=== PATIENT | female | born 1965 | race Caucasian/White ===

== ENCOUNTER → 2018-07-20 07:42 | Outpatient (CLI) | payer BC, SELFPAY ==
--- NOTE | 2018-07-20 07:45 | CT_ITS ---
CT chest wo con HISTORY: Hypertension, palpitations, fatigue ITS.REASON: s ORDERING PHYSICIAN: Alvarado Banegas MD PATIENT AGE: 52 years COMPARISON: None Technique: Axial images obtained. Sagittal, and coronal reformatted images are also generated and reviewed. All CT scans at the facility use one or more dose reduction, viz: automated exposure control, ma/kV adjustment per patient size (including targeted exams where dose is matched to indication, i.e. head), or iterative reconstruction technique. FINDINGS No mediastinal or hilar mass or adenopathy. No coronary artery calcifications. Normal heart size without evidence of pericardial effusion. The lungs are clear. No suspicious nodule infiltrate or effusion. No central obstructing lesion. There are few small lymph nodes in the axilla which are nonspecific No acute bony anomalies. Upper abdominal images are unremarkable. IMPRESSION: Negative CT chest without contrast
--- NOTE | 2018-07-20 07:45 | CA_ITS ---
PROCEDURE: INDICATIONS FOR THE TEST: Chest pain COPD Heart Murmur+ Tobacco Smoking+ Palpitations+ Fatigue+ Syncope Edema Hypertension+Diabetes Mellitus Rheumatic Fever SOB SOLIZ Obesity Hyperlipidemia Family History HD+ Additional History PATIENT INFORMATION HEIGHT:66 WEIGHT:166 GENDER: Female B/P:165/90 2-D/M-MODE INTERPRETATION: 2-D MEASUREMENTS OBSERVED VALUES IN CMS Right Ventricular Dimension (RVDd) 1.0 Interventricular Septum (Thickness)(IVsd) 0.8 Left Ventricular Internal Dimensions(LVIDd) 5.7 Left Ventricular Posterior Wall (Thickness)(LVPWd) 0.9 Aortic Root 2.7 Aortic Cusp Separation 2.0 Left Atrial Dimensions (LAD) 4.4 2D 1. Left atrium is mildly enlarged, left ventricle is normal size, there is no concentric left ventricular hypertrophy, visually estimated ejection fraction 55% with no regional wall motion abnormality. 2. The right atrium and right ventricle are normal size and contractility. 3. The aortic valve is minimally thickened and fibrosed. 4. The mitral and tricuspid valve is normal. 5. The pulmonic valve is poorly visualized. 6. No significant pericardial effusion noted. DOPPLER INTERROGATION: Doppler interrogation of the aortic, mitral and tricuspid valvular presence of mild mitral and tricuspid regurgitation, tricuspid regurgitation jet velocity is inadequate for calculation of the right ventricular systolic pressure, grade 1 diastolic dysfunction seen without tissue Doppler evidence of raised left atrial pressure, inferior vena cava is normal size with normal inspiratory collapse. CONCLUSION: 1. Mildly enlarged left atrium, normal left ventricular size, visually estimated ejection fraction 55% with no regional wall motion abnormality, grade 1 diastolic dysfunction seen without tissue Doppler evidence of raised left atrial pressure. 2. Mild mitral and tricuspid regurgitation. 3. No significant pericardial effusion noted.
== END ==
PROVIDERS: PCP Family Medicine; Visit Provider Internal Medicine Cardiovascular Disease
DX: R00.2 Palpitations (principal); I10 Essential (primary) hypertension; F17.200 Nicotine dependence, unspecified, uncomplicated; R53.83 Other fatigue; Z82.49 Family history of ischemic heart disease and other diseases of the circulatory system
CPT/HCPCS: 71250; 93017; 93306

== ENCOUNTER → 2019-01-06 09:03 | Outpatient (CLI) | payer BC, SELFPAY ==
[2019-01-06 09:46] LABS: Anion Gap 12.4 mEq/L (5-15); Blood Urea Nitrogen 11 mg/dL (7-18); Calcium 9.3 mg/dL (8.5-10.1); Carbon Dioxide 29 mmol/L (21.0-32.0); Chloride 98 mmol/L (98-107); Creatinine,Serum 0.91 mg/dL (0.55-1.02); Estimated Glomerular Filt Rate 65 ml/min (>60); GFR (African American) 78 ML/MIN (>60); Glucose 130 mg/dL (74-106); Potassium 4.4 mmoL/L (3.5-5.1); Sodium 135 mmol/L (136-145)
[2019-01-06 10:30] LABS: Alanine Aminotransferase 29 U/L (12-78); Albumin Level 3.8 gm/dL (3.4-5.0); Alkaline Phosphatase 72 U/L (46-116); Aspartate Amino Transferase 25 U/L (15-37); Bilirubin,Direct 0.1 mg/dL (0.0-0.2); Bilirubin,Indirect 0.2 mg/dL (0.0-0.9); Bilirubin,Total 0.3 mg/dL (0.2-1.0); Chol/HDL Ratio 2.6 (1-3.5); Cholesterol 150 mg/dL (140-200); HDL Cholesterol 58 mg/dL (29-89); LDL Cholesterol 82 mg/dL (0-130); Total Protein,Serum 7.4 gm/dL (6.4-8.2); Triglycerides 50 mg/dL (30-200); VLDL Cholesterol 10 mg/dL (0-40)
== END ==
PROVIDERS: Visit Provider Internal Medicine Cardiovascular Disease
DX: R07.9 Chest pain, unspecified (principal); I10 Essential (primary) hypertension; R00.2 Palpitations; R06.02 Shortness of breath; R53.83 Other fatigue; Z82.49 Family history of ischemic heart disease and other diseases of the circulatory system; F41.9 Anxiety disorder, unspecified; F17.200 Nicotine dependence, unspecified, uncomplicated
CPT/HCPCS: 36415; 80048; 80061; 80076

== ENCOUNTER → 2019-08-05 08:24 | Outpatient (CLI) | payer BC, SELFPAY ==
--- NOTE | 2019-08-05 08:24 | CA_ITS ---
APPROVED REPORT Ed Tech: Oly Garza RVT Study Quality: Excellent Indications: malignant htn Risk Factors Hypertension Smoking Renal Artery Doppler Origin (R) 106.5/ cm/sec Proximal (R) 143.1/ cm/sec Mid (R) 97.6/ cm/sec Distal (R) 87.7/ cm/sec Renal Aorta Ratio (R) 1.39 Segmental A. (R) 75.2/19.5 cm/sec RI: 0.74 Segmental A. Sup (R) 60.4/19.8 cm/sec Segmental A. Mid (R) 75.2/19.5 cm/sec Segmental A. Inf (R) 48.7/13.9 cm/sec Origin (L) 139.7/ cm/sec Proximal (L) 136.4/ cm/sec Mid (L) 87.8/ cm/sec Distal (L) 127.4/ cm/sec Renal Aorta Ratio (L) 1.35 Segmental A. (L) 93.4/29.9 cm/sec RI: 0.67 Segmental A. Sup (L) 45.6/22.0 cm/sec Segmental A. Mid (L) 64.5/20.5 cm/sec Segmental A. Inf (L) 83.4/29.9 cm/sec Renal Measurements Kidney Size (R) 11.1x7.3 cm Cortical Thickness (R) 1.5 cm Kidney Size (L) 11.1x7.7 cm Cortical Thickness (L) 1.7 cm Conclusion Study suggests no evidence of renal artery stenosis in the bilateral kidneys. Electronically signed by : Zachary Hall MD 08/05/2019 16:43:17
== END ==
PROVIDERS: PCP Family Medicine; Visit Provider Internal Medicine Cardiovascular Disease
DX: I10 Essential (primary) hypertension (principal)
CPT/HCPCS: 93976

== ENCOUNTER → 2021-06-19 13:39 | Outpatient (CLI) | payer BC, SELFPAY ==
[2021-06-19 14:57] LABS: Basophils # 0.2 K/mm3 (0-0.2); Basophils % 1.4 % (0.1-2.0); Eosinophils # 0.1 K/mm3 (0.0-0.4); Eosinophils % 1.2 % (0.1-12.0); Hematocrit 45.8 % (37.0-47.0); Hemoglobin 15.2 g/dL (12.2-16.2); Lymphocytes # 2.4 K/mm3 (0.7-4.5); Lymphocytes % 22.2 % (10-50); Mean Corpuscular HGB Conc 33.3 g/dL (31.8-35.4); Mean Corpuscular Hemoglobin 33.7 pg (27.0-31.2); Mean Corpuscular Volume 101.4 fl (81-99); Mean Platelet Volume 8.7 fl (7.4-10.4); Monocytes # 0.5 K/mm3 (0.1-1.0); Monocytes % 5.1 % (1.7-9.3); Neutrophils # 7.5 K/mm3 (1.8-7.8); Neutrophils % 70.2 % (37.0-80.0); Platelet Count 284 K/mm3 (142-424); Red Blood Count 4.52 M/mm3 (4.20-5.40); Red Cell Distribution Width 13.5 % (11.5-17.5); White Blood Count 10.7 K/mm3 (4.8-10.8)
[2021-06-19 15:29] LABS: Alanine Aminotransferase 39 U/L (12-78); Albumin Level 4.5 g/dl (3.5-5.0); Alkaline Phosphatase 68 U/L (38-126); Aspartate Amino Transferase 40 U/L (14-36); Bilirubin,Direct 0.1 mg/dl (0.0-0.4); Bilirubin,Indirect 0.4 mg/dL (0.0-0.9); Bilirubin,Total 0.5 mg/dl (0.2-1.3); Bilirubin,Unconjugated 0.4 mg/dL (0.0-1.1); Chol/HDL Ratio 3.1 (1-3.5); Cholesterol 185 mg/dl (140-200); HDL Cholesterol 59 mg/dl (40-60); Total Protein,Serum 7.1 g/dl (6.3-8.2); Triglycerides 76 mg/dl (30-150); VLDL Cholesterol 15 mg/dL (0-40)
[2021-06-19 15:40] LABS: Alanine Aminotransferase 40 U/L (12-78); Albumin Level 4.5 g/dl (3.5-5.0); Albumin/Globulin Ratio 1.9 (1.1-1.8); Alkaline Phosphatase 69 U/L (38-126); Anion Gap 10.9 mEq/L (5-15); Aspartate Amino Transferase 39 U/L (14-36); Bilirubin,Total 0.5 mg/dl (0.2-1.3); Blood Urea Nitrogen 12 mg/dl (7-17); Calcium 9.7 mg/dl (8.4-10.2); Carbon Dioxide 28 mmol/L (22.0-30.0); Chloride 98 mmol/L (98-107); Direct LDL Cholesterol 97.48 mg/dL (100-129); Estimated Glomerular Filt Rate 104 ml/min (>60); GFR (African American) 126 ML/MIN (>60); Globulin 2.4 g/dL (1.3-3.2); Glucose 99 mg/dl (74-100); Potassium 3.9 mmoL/L (3.5-5.1); Sodium 133 mmol/L (136-145); Total Protein,Serum 6.9 g/dl (6.3-8.2); Uric Acid 3.5 mg/dl (2.5-6.2)
[2021-06-19 15:58] LABS: Thyroid Stimulating Hormone 2.04 uIU/mL (0.465-4.68)
== END ==
PROVIDERS: PCP Internal Medicine Cardiovascular Disease; Visit Provider Nurse Practitioner Family
DX: I10 Essential (primary) hypertension (principal); M10.9 Gout, unspecified; M15.9 Polyosteoarthritis, unspecified; E55.9 Vitamin D deficiency, unspecified
CPT/HCPCS: 36415; 80053; 80061; 80076; 84439; 84443; 84550; 85025

== ENCOUNTER → 2022-05-19 12:11 | Outpatient (CLI) | payer BC, SELFPAY ==
[2022-05-19 12:33] LABS: Basophils # 0.1 K/mm3 (0-0.2); Basophils % 1.3 % (0.1-2.0); Eosinophils # 0.2 K/mm3 (0.0-0.4); Eosinophils % 2.4 % (0.1-12.0); Hematocrit 45.4 % (37.0-47.0); Hemoglobin 14.6 g/dL (12.2-16.2); Lymphocytes # 2.6 K/mm3 (0.7-4.5); Lymphocytes % 28.5 % (10-50); Mean Corpuscular HGB Conc 32.1 g/dL (31.8-35.4); Mean Corpuscular Hemoglobin 30.8 pg (27.0-31.2); Mean Corpuscular Volume 95.7 fl (81-99); Mean Platelet Volume 8.2 fl (7.4-10.4); Monocytes # 0.5 K/mm3 (0.1-1.0); Monocytes % 4.8 % (1.7-9.3); Neutrophils # 5.8 K/mm3 (1.8-7.8); Neutrophils % 62.9 % (37.0-80.0); Platelet Count 377 K/mm3 (142-424); Red Blood Count 4.75 M/mm3 (4.20-5.40); Red Cell Distribution Width 13.3 % (11.5-17.5); White Blood Count 9.2 K/mm3 (4.8-10.8)
[2022-05-19 12:46] LABS: Chloride 97 mmol/L (98-107); Sodium 136 mmol/L (136-145)
[2022-05-19 12:47] LABS: Potassium 4.1 mmoL/L (3.5-5.1)
[2022-05-19 12:49] LABS: Alanine Aminotransferase 31 U/L (12-78); Albumin Level 4.7 g/dl (3.5-5.0); Alkaline Phosphatase 66 U/L (38-126); Anion Gap 13.1 mEq/L (5-15); Aspartate Amino Transferase 32 U/L (14-36); Bilirubin,Direct 0.2 mg/dl (0.0-0.4); Bilirubin,Indirect 0.2 mg/dL (0.0-0.9); Bilirubin,Total 0.4 mg/dl (0.2-1.3); Bilirubin,Unconjugated 0.2 mg/dL (0.0-1.1); Blood Urea Nitrogen 10 mg/dl (7-17); Calcium 9.5 mg/dl (8.4-10.2); Carbon Dioxide 30 mmol/L (22.0-30.0); Cholesterol 198 mg/dl (140-200); Estimated Glomerular Filt Rate 103 ml/min (>60); GFR (African American) 125 ML/MIN (>60); Glucose 111 mg/dl (74-100); Total Protein,Serum 7.7 g/dl (6.3-8.2); Triglycerides 137 mg/dl (30-150); VLDL Cholesterol 27 mg/dL (0-40)
[2022-05-19 12:50] LABS: Chol/HDL Ratio 3.5 (1-3.5); HDL Cholesterol 56 mg/dl (40-60); Magnesium 1.6 mg/dl (1.6-2.3)
[2022-05-19 13:01] LABS: Direct LDL Cholesterol 119.51 mg/dL (100-129)
[2022-05-19 13:07] LABS: Free T4 (Free Thyroxine) 1.23 ng/dl (0.78-2.19)
[2022-05-19 13:20] LABS: Thyroid Stimulating Hormone 1.32 uIU/mL (0.465-4.68)
== END ==
PROVIDERS: PCP Nurse Practitioner Family; Visit Provider Internal Medicine Cardiovascular Disease
DX: I10 Essential (primary) hypertension (principal)
CPT/HCPCS: 36415; 80048; 80061; 80076; 83735; 84439; 84443; 85025

== ENCOUNTER → 2022-10-03 15:32 | Outpatient (CLI) | payer BC, SELFPAY ==
[2022-10-03 15:53] LABS: Basophils % 0.3 % (0.1-2.0); Eosinophils # 0.1 K/mm3 (0.0-0.4); Eosinophils % 1.2 % (0.1-12.0); Hematocrit 41.1 % (37.0-47.0); Hemoglobin 13.7 g/dL (12.2-16.2); Lymphocytes # 2.9 K/mm3 (0.7-4.5); Lymphocytes % 24.9 % (10-50); Mean Corpuscular HGB Conc 33.4 g/dL (31.8-35.4); Mean Corpuscular Hemoglobin 31.8 pg (27.0-31.2); Mean Corpuscular Volume 95.4 fl (81-99); Mean Platelet Volume 8.2 fl (7.4-10.4); Monocytes # 0.6 K/mm3 (0.1-1.0); Monocytes % 4.8 % (1.7-9.3); Neutrophils % 68.8 % (37.0-80.0); Platelet Count 346 K/mm3 (142-424); Red Blood Count 4.31 M/mm3 (4.20-5.40); Red Cell Distribution Width 12.9 % (11.5-17.5); White Blood Count 11.7 K/mm3 (4.8-10.8)
[2022-10-03 16:54] LABS: Alanine Aminotransferase 35 U/L (12-78); Albumin Level 4.6 g/dl (3.5-5.0); Albumin/Globulin Ratio 1.6 (1.1-1.8); Alkaline Phosphatase 75 U/L (38-126); Anion Gap 15.3 mEq/L (5-15); Aspartate Amino Transferase 34 U/L (14-36); Bilirubin,Total 0.4 mg/dl (0.2-1.3); Blood Urea Nitrogen 14 mg/dl (7-17); Calcium 9.9 mg/dl (8.4-10.2); Carbon Dioxide 24 mmol/L (22.0-30.0); Chloride 99 mmol/L (98-107); Estimated Glomerular Filt Rate 74 ml/min (>60); GFR (African American) 89 ML/MIN (>60); Globulin 2.9 g/dL (1.3-3.2); Glucose 101 mg/dl (74-100); Potassium 4.3 mmoL/L (3.5-5.1); Sodium 134 mmol/L (136-145); Total Protein,Serum 7.5 g/dl (6.3-8.2)
== END ==
PROVIDERS: PCP Nurse Practitioner Family; Visit Provider Otolaryngology
DX: Z01.812 Encounter for preprocedural laboratory examination (principal)
CPT/HCPCS: 36415; 80053; 85025

== ENCOUNTER → 2023-01-30 13:23 | Outpatient (CLI) | payer BC, SELFPAY ==
--- NOTE | 2023-01-30 13:23 | CA_ITS ---
APPROVED REPORT EXAM: Comprehensive 2D, Doppler, and color-flow Echocardiogram Slip Cover Estimator: PAUL Crowell, RVS Ht: 5 ft 6 in Wt: 195lbs BSA: 1.98 BP: 187/101 mmHg Indications: HTN, MR, Murmur, Palpitations, Smoker 2D Dimensions Left Atrium 3.63 cm LA Volume 68.80 mL LA Volume Index 33.90 mL/m2 (M/F) 16-34 M-Mode Dimensions RVDd 2.66 cm (0.9-2.6) LA Diam 3.66 cm (1.9-4.0) LVDd 5.16 cm (3.5-5.7) LVDs 3.72 cm (3.5-5.7) IVSd 1.25 cm (0.6-1.1) PWd 0.99 cm (0.6-1.1) EF (Teich) 53.70% EPSs 0.38 cm FS 27.90% EDV (Teich) 127.20 mL TAPSE 2.86 (<1.7) ESV (Teich) 58.90 mL LV Diastology E Decel Time 223 (160-240 msec) E/A Ratio 1.54 MED A' 7.60 cm/s LAT A' 6.80 cm/s Aortic Valve LONG Index 1.04 cm2/m2 AoV Peak Ankit. 155.0 (50-130 cm/s) AO Peak GR. 9.60 mmHg AO Mean GR. 4.90 (<5 mmHg) AO VTI 35.2 (18-25 cm) LONG (VTI) 2.12 (2.5-4.5 cm2) Mitral Valve MV A Velocity 51.0 (40-130 cm/s) E/A Ratio 1.54 Left Ventricle The left ventricle is normal size. The left ventricular systolic function is normal. The left ventricular ejection fraction is within the normal range. There is normal left ventricular wall thickness. There is normal LV segmental wall motion. The left ventricular diastolic function is normal. LVEF is 60%. Right Ventricle The right ventricle is normal size. The right ventricular systolic function is normal. Atria The left atrium size is mildly dilated. The right atrium size is normal. There is no Doppler evidence of interatrial shunt. Aortic Valve The aortic valve opens well. There is no aortic valvular stenosis. No aortic regurgitation is present. Mitral Valve The mitral valve is normal in structure. No evidence of mitral valve stenosis. Trace mitral regurgitation. Tricuspid Valve The tricuspid valve leaflets are thin and pliable. Trace tricuspid regurgitation. There is insufficient TR jet to estimate RVSP. Pulmonic Valve The pulmonary valve is normal in structure. Trace pulmonic regurgitation. Great Vessels The aortic root is normal in size. The ascending aorta is normal in size. IVC is normal in size and collapses >50% with inspiration. Pericardium There is no pericardial effusion. Other Information Study Quality: Adequate Conclusion Normal biventricular systolic function. No significant valvular stenosis or regurgitation. Electronically signed by : Patricia Lopez MD 02/05/2023 23:19:02
== END ==
PROVIDERS: PCP Nurse Practitioner Family; Visit Provider Internal Medicine
DX: I34.0 Nonrheumatic mitral (valve) insufficiency (principal); I07.1 Rheumatic tricuspid insufficiency; I10 Essential (primary) hypertension; F17.200 Nicotine dependence, unspecified, uncomplicated
CPT/HCPCS: 93306

== ENCOUNTER 2023-09-30 13:44 | Outpatient (CLI) | payer BC, SELFPAY ==
[2023-09-30 14:00] LABS: Basophils # 0.1 K/mm3 (0-0.2); Basophils % 0.8 % (0.1-2.0); Eosinophils # 0.2 K/mm3 (0.0-0.4); Eosinophils % 2.1 % (0.1-12.0); Lymphocytes # 3.2 K/mm3 (0.7-4.5); Lymphocytes % 32.3 % (10-50); Mean Corpuscular HGB Conc 32.6 g/dL (31.8-35.4); Mean Corpuscular Hemoglobin 32.6 pg (27.0-31.2); Mean Corpuscular Volume 99.9 fl (81-99); Mean Platelet Volume 8.8 fl (7.4-10.4); Monocytes # 0.5 K/mm3 (0.1-1.0); Monocytes % 4.7 % (1.7-9.3); Neutrophils # 5.9 K/mm3 (1.8-7.8); Platelet Count 382 K/mm3 (142-424); Red Cell Distribution Width 13.4 % (11.5-17.5); White Blood Count 9.8 K/mm3 (4.8-10.8)
[2023-09-30 14:34] LABS: Blood Urea Nitrogen 14 mg/dl (7-17); Calcium 9.7 mg/dl (8.4-10.2); Carbon Dioxide 24 mmol/L (22.0-30.0); Chloride 102 mmol/L (98-107); Estimated Glomerular Filt Rate 74 ml/min (>60); GFR (African American) 89 ML/MIN (>60); Glucose 107 mg/dl (74-100); Potassium 3.8 mmoL/L (3.5-5.1)
[2023-09-30 14:46] LABS: Anion Gap 12.8 mEq/L (5-15); Sodium 135 mmol/L (136-145)
== END 2023-09-30 23:59 | disposition home or self-care (01) ==
LOC: LAB 13:45
PROVIDERS: PCP Nurse Practitioner Family; Visit Provider Colon & Rectal Surgery
DX: K60.3 Anal fistula (principal)
CPT/HCPCS: 36415; 80048; 85025

== ENCOUNTER 2024-04-02 15:10 | Emergency (ER) | payer BC, SELFPAY ==
[2024-04-02 15:25] VITALS: BP 102/76; PULSE 79; RESP 18; TEMP 36.6; O2SAT 94; BMI 34.1
--- NOTE | 2024-04-02 15:33 | ED_ITS ---
Discharge Plan Disposition Patient Disposition: Home, Self-Care Condition: Good Prescriptions Prescriptions: New doxycycline hyclate 100 mg capsule 100 mg PO BID Qty: 20 0RF benzonatate 100 mg capsule 100 mg PO TID PRN (Reason: cough) Qty: 30 0RF methylprednisolone [Medrol (Zach)] 4 mg tablets,dose pack See Rx Instructions .Route .COMPLEX 6 Days Qty: 21 0RF Rx Instructions: taper pack; guaifenesin [Mucinex] 600 mg tablet extended release 12hr 1,200 mg PO BID PRN (Reason: cough/congestion) Qty: 20 0RF albuterol sulfate 90 mcg/actuation HFA aerosol inhaler 2 puff inhalation Q4-6H PRN (Reason: shortness of breath or wheezing) Qty: 8.5 0RF No Action amlodipine [Norvasc] 5 mg tablet 5 mg PO DAILY Qty: 30 11RF bisoprolol fumarate 10 mg tablet 10 mg PO BID Qty: 60 11RF budesonide 1 mg/2 mL suspension for nebulization 1 mg inhalation DAILY Patient Comments: Empty contents of one ampule into Netiflo, add distilled water and irrigate 1 to 2 times losartan-hydrochlorothiazide 100-25 mg tablet 1 tab PO DAILY Qty: 30 11RF clonidine HCl 0.1 mg tablet 0.1 mg PO TID 30 Days Qty: 90 3RF spironolactone 25 mg tablet 25 mg PO DAILY Qty: 30 4RF Referrals Follow up/Referrals: Shalonda Garrett APRN [Primary Care Provider] - See instructions Activity Restrictions/Add. Instructions Additional Instructions/Restrictions: * Start antibiotic today. Be sure to complete entire prescription even if feeling better * Monitor temp. Tylenol every 4 hours as needed and / or ibuprofen every 6 hours as needed ( As long as your primary care physician has told you that it ok to take both. For fever/aches/pains ER if no less than 101 despite Tylenol or Motrin * Humidifier/vaporizer or hot steamy shower * Inhaler every 4-6 hours as needed like we discussed. If unsure how to use it, ask pharmacist to demonstrate how. Should help open airways and improve cough, wheezing, and shortness of breath * Mucinex during the day for your cough and cough suppressant only at night. Be sure to drink lots of water. *Tessalon Perles will not cause drowsiness but use at bedtime to help stop cough so that you may get some rest. *Start steroid today. Helps with inflammation therefore, cough and wheezing. Follow directions on the package. Reviewed side effects. Patient reports taking them before. Follow up IMMEDIATELY for new or worsening of symptoms OR no noticeable improvement over the next 48-72 hours. 911 immediately for any life threatening symptoms such as chest pain or difficulty breathing Clinical Impressions Clinical Impression: Bronchitis Sinusitis Qualifiers: Sinusitis location: unspecified location Chronicity: unspecified Qualified Code(s): J32.9 - Chronic sinusitis, unspecified Instructions Patient Instructions: DI for Sinusitis, Acute Bronchitis, DI for Acute Bronchitis Print Language Print Language: Mohawk Discharge ED Provider: Breonna Haider [facility] General Stated complaint: SOA,cough,fever Mode of Arrival: Ambulatory Source of Information: Patient Limitations: No Limitations Time Seen by Provider: 04/02/24 15:34 Description of Symptoms (Recalled from Triage Doc. by RN): PATIENT C/O SOA, COUGH, FEVER, AND FATIGUE SINCE Thursday HEENT Symptoms (Recalled from RN notes): No Resp Symptoms (Recalled from RN notes): Yes Skin Symptoms (Recalled from RN notes): No MS Symptoms (Recalled from RN notes): No Functional Status (Recalled from RN notes): WNL History of Present Illness Provider Complaint: Patient states that she has continued to feel worse since with sinus congestion and pressure, cough feeling SOA at times after coughing episode, had low grade fever, some chills and over all not feeling well States today she was still not feeling well so she came in to get checked Related Data Home Medications ?Medication ?Instructions ?Recorded ?Confirmed budesonide 1 mg/2 mL suspension 1 mg inhalation DAILY 01/13/24 04/02/24 for nebulization Previous Rx's ?Medication ?Instructions ?Recorded amlodipine 5 mg tablet (Norvasc) 5 mg PO DAILY #30 tabs 06/10/23 bisoprolol fumarate 10 mg tablet 10 mg PO BID #60 tabs 06/10/23 losartan 100 1 tab PO DAILY #30 tabs 10/19/23 mg-hydrochlorothiazide 25 mg tablet clonidine HCl 0.1 mg tablet 0.1 mg PO TID 30 days #90 tabs 12/13/24 spironolactone 25 mg tablet 25 mg PO DAILY #30 tabs 02/12/24 albuterol sulfate 90 mcg/actuation 2 puff inhalation Q4-6H PRN 04/02/24 aerosol inhaler shortness of breath or wheezing #8.5 grams benzonatate 100 mg capsule 100 mg PO TID PRN cough #30 caps 04/02/24 doxycycline hyclate 100 mg capsule 100 mg PO BID #20 caps 04/02/24 guaifenesin 600 mg tablet, 1,200 mg (2 x 600 mg) PO BID PRN 04/02/24 extended release 12 hr (Mucinex) cough/congestion #20 tabs methylprednisolone 4 mg tablets in See Rx Instructions .Route 04/02/24 a dose pack (Medrol (Zach)) .COMPLEX 6 days #21 tabs Allergies Allergy/AdvReac Type Severity Reaction Status Date / Time Penicillins (PENICILLINS) Allergy Unknown Verified 01/13/24 14:19 Worker's Comp Is this a Worker's Comp case?: No [facility] Disclaimer: The information contained in this section may have been updated after the patient was seen, as this information can be updated by other users. Medical History Mild tricuspid valve regurgitation Mild mitral valve regurgitation Anxiety Chest pain Fatigue Family history of hypertension Smoker HTN (hypertension) Surgical History H/O sinus surgery Social History Smoking Status: Former smoker alcohol intake: current alcohol intake frequency: holidays/special occasions only substance use type: denies use current occupational status: employed Travel in the last 8 weeks: Inside the [place] Have you lived/traveled outside US in past 30 days?: No Contact w/someone who lives/traveled outside US past 30 days?: No Exposure to someone with infectious disease in past 14 days?: No Do you have a fever (greater than 100.4 F or 38 C)?: Yes Have you tested positive for COVID-19: No Exposed to someone with COVID-19 in past 14 days?: No Do you have a sore throat?: No Do you have a cough?: Yes Do you have any weakness?: Yes Do you have any diarrhea?: No Are you experiencing any unusual bleeding?: No Do you have any muscle aches/pain?: No Do you have any abdominal pain?: No Are you experiencing loss of taste or smell?: No ROS Obtained: Yes All systems reviewed & no additional complaints except as documented and Yes Systems reviewed as appropriate & no additional complaints except as documented Constitutional Constitutional: Reports system reviewed and no additional complaints, except as documented, Reports as per HPI, Reports body ache, Reports fever(s) and Reports headache(s) ENT Ears, Nose, Mouth, and Throat: Reports system reviewed and no additional complaints, except as documented, Reports as per HPI, Reports headache(s), Reports nasal congestion and Reports sinus pressure Cardiovascular Cardiovascular: Reports system reviewed and no additional complaints, except as documented and Reports as per HPI Respiratory Respiratory: Reports system reviewed and no additional complaints, except as documented, Reports as per HPI, Reports shortness of breath (at times after coughing episode), Reports chest congestion and Reports cough Gastrointestinal Gastrointestingal: Reports system reviewed and no additional complaints, except as documented and as per HPI Genitourinary Female Genitourinary: Reports system reviewed and no additional complaints, except as documented and Reports as per HPI Neurologic Neurologic: Reports headache(s) Physical Exam General General appearance: alert and in no apparent distress ENT ENT exam: Present mucous membranes moist Expanded ENT Exam Nose exam: Present sinus tenderness Throat exam: Present other (PND noted) Respiratory Respiratory exam: Present normal lung sounds bilaterally; Absent respiratory distress or wheezes Cardiovascular Cardiovascular exam: Present regular rate, normal rhythm and normal heart sounds Abdominal Exam Abdominal exam: Present soft and normal bowel sounds; Absent distention or tenderness Neurological Exam Neurological exam: Present alert, oriented X3 and normal gait Medical Decision Making Medical Records Screening: Per USPSTF and CDC recommendations, given the prevalence of disease in our region, it is our hospital?s policy to screen for HIV and viral Hepatitis for all patients aged 18 and over and those with ongoing risk factors. [place] Inquiry Pt receiving controlled substance: No [place] was queried for this patient: No Vital Signs: 04/02/24 15:25 Temperature 97.9 F Temperature Source Oral Pulse Rate [Left Brachial] 79 Respiratory Rate 18 Blood Pressure [Left Arm] 102/76 L Blood Pressure Mean [Left Arm] 84 Blood Pressure Source [Left Arm] Automatic Cuff Blood Pressure Position [Left Arm] Sitting 02 Sat by Pulse Oximetry 94 L Oxygen Delivery Method Room Air Radiology Data #1: Image(s): Chest Image Reviewed: Yes I have reviewed radiologist's interpretation FINDINGS: Lungs: Unremarkable. No consolidation. Pleural spaces: Unremarkable. No pleural effusion. No pneumothorax. Heart/Mediastinum: Unremarkable. No cardiomegaly. Bones/joints: Unremarkable. IMPRESSION: No acute findings. Medical Decision Narrative: Pt blood pressure rechecked 133/89 Patient states that she has taken Steroids in the past without complications or reactions
--- NOTE | 2024-04-02 15:52 | XR_ITS ---
PROCEDURE INFORMATION: Exam: XR Chest Exam date and time: 04/02/2024 4:00 PM Age: 58 years old Clinical indication: Cough; Additional info: Cough/congestion/soa x 3 days. Lifetime smoker TECHNIQUE: Imaging protocol: Radiologic exam of the chest. Views: 2 views. COMPARISON: CHESTWO CT chest wo con 07/20/2018 7:58 AM FINDINGS: Lungs: Unremarkable. No consolidation. Pleural spaces: Unremarkable. No pleural effusion. No pneumothorax. Heart/Mediastinum: Unremarkable. No cardiomegaly. Bones/joints: Unremarkable. IMPRESSION: No acute findings.
[2024-04-02] MEDS: IPRATROPIUM/ALBUTEROL 3 ML NEB IH (16:20)
[2024-04-02 17:28] VITALS: BP 102/76; PULSE 79; RESP 18; TEMP 36.6; O2SAT 96
== END 2024-04-02 17:30 | disposition home or self-care (01) ==
PROVIDERS: Emergency Provider Nurse Practitioner; PCP Nurse Practitioner Family
DX: J32.9 Chronic sinusitis, unspecified (principal)
CPT/HCPCS: 71046; 99213; G0381; J7620

== ENCOUNTER 2024-08-03 15:56 | Outpatient (CLI) | payer BC, SELFPAY ==
--- OUTSIDE RECORDS SUMMARY | 2024-08-03 15:59 | XMS_ITS | Data Portability ---
Author Organization [facility]OS[facility] Address [address] [place] [address] Care Team Providers Care Ccnp Name Role Phone [facility] Primary Care Provider [phone] Assessment No assessment recorded. Plan of Treatment Reminders Order Date Submit Date Provider Last Modified By Organization Details Last Modified Time Details Appointments RECHECK 2024 01:20P M SVITLANA EGAN MD Not available Not available Not available Lab None recorded. Referral None recorded. Procedures None recorded. Surgeries None recorded. Imaging None recorded. Medication Orders budesonid e 1 mg/2 mL suspensio n for nebulizat ion [address] [facility], [address], [id number], 12/15/2023 10:48:05 budesonid e 1 mg/2 mL suspensio n for nebulizat ion [address] [facility], [address], [id number], 12/17/2022 09:05:59 Compound Gentamici n 80 mg - Mupirocin 20 mg - Budesonid e 1 mg capsules #60 [address] [facility] [address] [place] [address] Pharmacy, [address] [facility] [address], [place], [id number], 11/05/2022 16:03:36 Patient TargetsNo targets recorded. Patient Instructions Encounter Date Encounter Id Patient Instructions Last Modified By Organization Details Last Modified Time 10/13/2022 [id number] 1. Bilateral Juan al debridement performed in office today. Full risks, complications, and benefits of non-operative intervention have been thoroughly discussed. Understanding was expressed, informed consent given, and we will proceed with the discussed treatment plan. There were no questions for me at the end of the office visit. 2. Use saline nasal spray 5-6 times per day along with Xyzal 4. Do not do heavy activty until Thursday , 10/18 3. F/u in 3-4 weeks [place] Not available 10/13/2022 12:03:05 She is doing wel l after septoplasty and functional endoscopic sinus surgery bilaterally for nasal polyp disease and pansinusitis. Her septal splints were removed and then bilateral nasal endoscopic debridement performed. Wound care instructions were reviewed and I will see her for routine follow-up in 3 to 4 weeks. Not available 10/13/2022 12:05:00 11/05/2022 [id number] 1. Nasal Endosco py and Lysis of right nasal synechiae performed along with debridement (right side). Full risks, complications, and benefits of non-operative intervention have been thoroughly discussed. Understanding was expressed, informed consent given, and we will proceed with the discussed treatment plan. There were no questions for me at the end of the office visit. 2. Rx-Mupirocin, Gentamycin and Budesonide compound[facility] irrigate both sides of the nose bid daily 3. May recommend biologic treatment for nasal polyp disease in the future 4. F/u in 3-4 weeks nstaton Not available 11/05/2022 15:46:41 She is doing wel l after septoplasty and endoscopic sinus surgery bilaterally with polypectomy. Nasal endoscopic debridement was performed on the right side. She had a small synechia between the middle turbinate and lateral nasal wall on the right that was lysed. Because of her polyp disease, I am starting budesonide, gentamicin, mupirocin, and saline irrigations and I want to repeat her nasal endoscopic exam in 6 weeks. If there is any evidence of recurrence of her polyp disease then she would be a candidate for Dupixent injections Not available 11/05/2022 15:49:35 12/17/2022 [id number] 1. Nasal Endosco py performed ; clinical photos obtained. Full risks, complications, and benefits of non-operative intervention have been thoroughly discussed. Understanding was expressed, informed consent given, and we will proceed with the discussed treatment plan. There were no questions for me at the end of the office visit. 2. Rx- [place] compounding- Budesonide irrigations- use daily 3. F/u in 6 months nstaton Not available 12/17/2022 08:50:52 She continues to do well since septoplasty, endoscopic sinus surgery with polypectomy in September of this year. She has been on twice daily mupirocin, gentamicin, and budesonide irrigations and nasal endoscopy today shows no evidence of infection and more importantly no evidence of recurrence of her nasal polyp disease. She is symptomatically much improved and she is pleased. I am switching her to saline and budesonide irrigations once daily and I want to repeat her nasal endoscopic exam in 6 months. Not available 12/17/2022 08:53:37 06/16/2023 [id number] 1. Nasal Endosco py performed ; clinical photos obtained. Full risks, complications, and benefits of non-operative intervention have been thoroughly discussed. Understanding was expressed, informed consent given, and we will proceed with the discussed treatment plan. There were no questions for me at the end of the office visit. 2. Continue with Budesonide saline irrigations bid daily 3. F/u in 6 months nstaton Not available 06/16/2023 10:42:02 She had successf ul endoscopic sinus surgery and polypectomy last year and continues once or twice daily nasal saline and budesonide irrigations and symptom control was excellent. She has had no recent sinus infections. Nasal airway is much improved. Sinus headaches have completely resolved. Sense of taste and smell is normal. Nasal endoscopy today shows no evidence of recurrent polyp disease with Meltser score 0 bilaterally. We will continue current treatment and I will see her again in 6 months. If she remains polyp free then we can go to once every 12 months on her follow-up endoscopic exam. Not available 06/16/2023 10:46:08 12/15/2023 [id number] 1. Nasal Endosco py performed in office today. Full risks, complications, and benefits of non-operative intervention have been thoroughly discussed. Understanding was expressed, informed consent given, and we will proceed with the discussed operative treatment plan. There were no questions for me at the end of the office visit. 2. Continue with Budesonide saline irrigations bid daily 3. F/U in 1 year or prn. sschoff Not available 12/15/2023 10:21:51 She continues to do well since endoscopic sinus surgery with polypectomy and continues once daily saline and budesonide irrigations. Nasal endoscopic exam shows middle meatuses are widely patent and clean with Meltser score 0. She will continue current treatment and I will see her yearly but she will return sooner if necessary. Not available 12/15/2023 10:23:54 Reason for Referral None Reported. Results Created Date Observation Date Name Description Value Unit Range Abnormal Flag Note LastModifiedBy Organization Detail LastModifiedTime 10/11/1910/10/2022 SURGI RADHA surgical SEE BELOW normal Depar tment of Patho logy Surgi radha Patho logy Repor t NAME: LINDA LALA PATH. :SS-2 18 Copy to: Diagn osis: A) Right sinus earnestine nts: Chron ic polyp oid sinus itis with mixed infla mmati on (lymp hocyt es, plasm a cells and eosin ophil s) and fragm ents of bone. B) Left sinus earnestine nts: Chron ic polyp oid sinus itis with mixed infla mmati on (lymp hocyt es, plasm a cells and eosin ophil s) and fragm ents of bone. SOURC E OF SPECI MEN: SINUS EARNESTINE NTS, RIGHT SINUS EARNESTINE NTS, LEFT CLINI RADHA INFOR MATIO N: DEVIA ROHIT SEPTU M / CHRON IC SINUS ITIS Gross Descr iptio n: A) Recei kristopher in forma stephanie label ed with the patie nt's name and desig natjesús righ t sinus earnestine nts are multi ple pink- torres tissu e fragm ents admix ed with possi ble carti nasir and bone, which have aggre gate dimen sions of 2.0 x 2.0 x 0.4 cm. Repre senta tive secti ons are submi tted in a singl e casse tte follo wing decal cific ation . B) Recei kristopher in forma stephanie label ed with the patie nt's name and desig nated left sinus earnestine nts are multi ple pink- torres tissu e fragm ents admix ed with possi ble carti nasir and bone, which have aggre gate dimen sions of 3.0 x 2.5 x 0.4 cm. Repre senta tive secti ons are submi tted in a singl e casse tte follo wing decal cific ation . JAB 10/10 02:24 PM Micro scopi c Descr iptio n: A micro scopi c exami natio n has been perfo rmed and the resul t(s) are as noted above . LILY CHUN M.D. Char d Out Date: 10/13 10:21 Page 1 of 1 Not Available [facility] [address] [place] [address], [phone], 10/13/2022 10:21:50 10/28/19 23 10/09/2022 elect hayes diogr am No observ ation record ed. BARCODE Not Available 2022 14:58:59 Result Notes None recorded. Problems No Known Problems Procedures Surgical History Date Name Laterality Status Provider Name and Address Organization Details Recorded Time 12/15/19 24 Endoscopy Nasal; Diagnostic completed Shari Bear [facility] 12/15/2023 10:21:17 06/16/19 24 Endoscopy Nasal; Diagnostic completed [facility] 06/16/2023 10:41:42 12/18/19 23 Endoscopy Nasal; Diagnostic completed [facility] 12/17/2022 08:48:55 11/06/19 23 Endoscopy Nasal; Biospy, Polypectomy or Debridement completed Xochitl [facility] 11/05/2022 15:43:52 10/14/19 23 Endoscopy Nasal; Biospy, Polypectomy or Debridement completed Amanda Gutierrez [facility] 10/13/2022 11:58:02 06/27/19 23 Tympanogram completed LAURA POPE, EVANGELINA, CCA-A [address] [place] [address], [phone], [facility] 06/26/2022 11:13:46 06/27/19 23 Audiogram completed EVANGELINA VALENTIN, CCA-A [address] [place], [address], [facility] 06/26/2022 11:07:07 03/02/19 11 procedure on gallbladder completed [facility] 06/26/2022 11:03:38 03/02/18 95 Removal of tonsils completed [facility] 06/26/2022 11:03:30 03/02/18 93 Cauterization of cervix completed [facility] 06/26/2022 11:04:17 Imaging Results None recorded. Procedure Notes None recorded. Medical Equipment None Reported. Allergies Allergen ID Allergen Name Allergen Category Reaction Reaction Severity Criticality Documentation Date Start Date Code Code System Note Provider Name and Address Organization Details Recorded Time 270067 Product containin g penicilli n (product) medicatio n Not available Not available Not available 06/26/2022 05996 8001 SNOMED [facility] 11:05:14 Medications Name Sig Start Date Stop Date Status Note LastModified by Organization Details LastModified Time Compound Gentamicin 80 mg - Mupirocin 20 mg - Budesonide 1 mg capsules #60 Empty contents of 1 capsule into irrigatio n device, add distilled water, irrigate twice daily 2022 active Not Available Not Available Not Avai lable bupropion HCl SR 150 mg tablet,12 hr sustained-r elease 06/26 completed Not Available Not Available Not Available clonidine HCl 0.1 mg tablet active Not Available Not Available Not Available doxycycline hyclate 100 mg capsule Take 1 capsule twice a day by oral route for 10 days. 11/05 completed Not Available Not Available Not Available valacyclovi r 1 gram tablet active Not Available Not Available Not Available tretinoin 0.025 % topical cream APPLY A PEA SIZED AMOUNT TO ENTIRE FACE AT NIGHT DIRECTED 12/14 completed Not Available Not Available Not Available clindamycin HCl 150 mg capsule Take 1 capsule 3 times a day by oral route for 7 days. 11/05 completed Not Available Not Available Not Available metronidazo le 500 mg tablet active Not Available Not Available Not Available amlodipine 5 mg tablet active Not Available Not Available Not Available ciprofloxac in 500 mg tablet 12/14 completed Not Available Not Available Not Available spironolact one 25 mg tablet active Not Available Not Available Not Available bisoprolol fumarate 10 mg tablet active Not Available Not Available No t Available losartan 100 mg-hydrochl orothiazide 25 mg tablet active Not Available Not Available Not Available hydrocodone 7.5 mg-acetamin ophen 325 mg tablet TAKE 1 TABS PO EVERY 6-8 HOURS PRN PAIN 11/05 completed Not Available Not Available Not Available ondansetron 4 mg disintegrat ing tablet TAKE 1 TAB NEEDED EVERY 8 HOURS FOR NAUSEA 11/05 completed Not Available Not Available Not Available amlodipine active Not Available Not Av ailable Not Available levocetiriz ine 5 mg tablet active Not Available Not Available Not Available budesonide 1 mg/2 mL suspension for nebulizatio n Empty contents of one ampule into Netiflo, add distilled water and irrigate 1 to 2 times active Not Available Not Available No t Available Xyzal active Not Available Not Availa ble Not Available Vitals Date Recorded Body height Body mass index (BMI) Body weight Heart rate Systolic blood pressure Diastolic blood pressure Provider Name and Address Organization Details Last Updated DateTime 4 167.64 cm 32.6 kg/m2 93423.3 6 g 63 /min 123 mm[Hg] 90 mm[Hg] Argentina Monroy [facility] 4 10:08:00 Date Recorded Body height Body mass index (BMI) Body weight Body temperature Heart rate Systolic blood pressure Diastolic blood pressure Provider Name and Address Organization Details Last Updated DateTime 3 167.64 cm 31.2 kg/m2 33401.4 3 g 98 [degF] 57 /min 190 mm[Hg] 95 mm[Hg] Jillian Winchester [facility] 3 11:03:09 Date Recorded Body height Body mass index (BMI) Body weight Body temperature Heart rate Systolic blood pressure Diastolic blood pressure Provider Name and Address Organization Details Last Updated DateTime 3 167.64 cm 31.6 kg/m2 61678.3 1 g 97.9 [degF] 62 /min 148 mm[Hg] 83 mm[Hg] Jen Navarro [facility] 3 15:11:46 Date Recorded Body height Body mass index (BMI) Body weight Body temperature Heart rate Systolic blood pressure Diastolic blood pressure Provider Name and Address Organization Details Last Updated DateTime 4 167.64 cm 33.3 kg/m2 00649.1 8 g 97.3 [degF] 54 /min 111 mm[Hg] 74 mm[Hg] Ashley Alegria [facility] 4 10:12:40 Date Recorded Body height Body mass index (BMI) Body weight Body temperature Heart rate Systolic blood pressure Diastolic blood pressure Provider Name and Address Organization Details Last Updated DateTime 3 167.64 cm 32 kg/m2 22125.2 9 g 98.8 [degF] 64 /min 166 mm[Hg] 91 mm[Hg] Rosy Mc [facility] 3 08:32:57 Social History None recorded. Functional Status None recorded. Mental Status None recorded. Family History Nothing Reported. Medical History No medical history recorded. Gynecological HistoryNo gynecological history recorded. Obstetrics History GPAL:G 0 P 0 0 0 0 Immunizations Vaccine Type Date Status Note Provider Nam e and Address Organization Details Recorded Time COVID-19, mRNA, LNP-S, PF, 100 mcg/0.5mL dose or 50 mcg/0.25mL dose 10/09/2020 [facility] 12/15/2023 10:12:49 COVID-19, mRNA, LNP-S, PF, 100 mcg/0.5mL dose or 50 mcg/0.25mL dose 11/06/2020 completed [facility] 12/15/2023 10:12:49 Past Encounters Encounter ID Performer Location Encounter Start Date Encounter Closed Date Diagnosis/Indication Diagnosis SNOMED-CT Code Diagnosis ICD10 Code Diagnosis Note [id number] SVITLANA EGAN MD [facility] [address] [place] [address] 06/26/2022 10:50:57 06/26/2022 14:07:45 Sensorineural hearing loss of bilateral ears 777768411 H90.3 06/26/2022 -Mild HF SNHL bilaterall y R>L with SRT: 15dB and NU-6 is 45dB with 100% on the right and SRT: 0dB and NU-6 is 40dB with 100% on the left and Type A Tymps bilaterall y Temporoman dibular joint disorder 53876916 M26.609 Sinus barotrauma 9138629 7 T70.1XXA Otitic barotrauma 845126 04 T70.0XXA Tinnitus of right ear 48 16410929 108 H93.11 Nasal congestion 0872300 0 R09.81 Otalgia of right ear 888 3207344 H92.01 Allergic rhinitis 808338 04 J30.9 [id number] LAURA GARBER ER, AUD, [facility] [address] [place] [address] 06/26/2022 11:05:56 06/26/2022 16:40:55 Tinnitus of right ear 6045432462 108 H93.11 Otalgia of right ear 391 4072361 H92.01 [id number] SVITLANA EGAN MD [facility] [address] [place] [id number] 07/24/2022 10:40:57 07/24/2022 12:10:09 Allergic rhinitis 99018600 J30.9 -Normal per allergy testing results Nasal congestion 9938787 0 R09.81 Sinus barotrauma 3094975 7 T70.1XXA Polyp of n jenny cavity and/or nasal sinus 753944901 J33.9 07/24/2022 -DIANA SCORE 0 Chronic sinusitis 827138 00 J32.9 Left septal deviation with bilateral frontal, bilateral ethmoid, and bilateral maxillary) Deviated nasal septum 12 7781852 J34.2 [id number] SVITLANA EGAN MD [facility] [address] [place] [address] 10/13/2022 10:43:24 10/13/2022 12:28:03 Chronic sinusitis 86028936 J32.9 Left septal deviation with bilateral frontal, bilateral ethmoid, and bilateral maxillary) septoplast y and image guided bilateral total ethmoidect daphne, bilateral frontal sinusplast y with tissue removal, and bilateral maxillary antrostomy with tissue removal performed on 10/10/2022. Deviated nasal septum 12 0903872 J34.2 septoplast y and image guided bilateral total ethmoidect daphne, bilateral frontal sinusplast y with tissue removal, and bilateral maxillary antrostomy with tissue removal performed on 10/10/2022. Nasal congestion 4196301 0 R09.81 Polyp of n jenny cavity and/or nasal sinus 940630757 J33.9 07/24/2022 -DIANA SCORE 0 Allergic rhinitis 441245 04 J30.9 -Normal per allergy testing results Sinus barotrauma 9897507 7 T70.1XXA [id number] SVITLANA EGAN MD SURGERY SCHEDULE [address] [place] [address] 10/10/2022 08:23:45 10/10/2022 08:26:26 [id number] SVITLANA EGAN MD [facility] [address] [facility] [place] [address] 11/05/2022 14:49:46 11/05/2022 15:51:13 Chronic sinusitis 82402151 J32.9 Left septal deviation with bilateral frontal, bilateral ethmoid, and bilateral maxillary) septoplast y and image guided bilateral total ethmoidect daphne, bilateral frontal sinusplast y with tissue removal, and bilateral maxillary antrostomy with tissue removal performed on 10/10/2022. Deviated nasal septum 12 0497848 J34.2 septoplast y and image guided bilateral total ethmoidect daphne, bilateral frontal sinusplast y with tissue removal, and bilateral maxillary antrostomy with tissue removal performed on 10/10/2022. Polyp of n jenny cavity and/or nasal sinus 225862988 J33.9 07/24/2022 -DIANA SCORE 0 Adhesions of nasal cavity 397247403 J34.89 - between septum and turbinate on right side [id number] MD GENNY MOREIRA [facility] [address] [place] [address] 12/17/2022 08:28:10 12/17/2022 09:39:42 Chronic sinusitis 14189115 J32.9 Left septal deviation with bilateral frontal, bilateral ethmoid, and bilateral maxillary) septoplast y and image guided bilateral total ethmoidect daphne, bilateral frontal sinusplast y with tissue removal, and bilateral maxillary antrostomy with tissue removal performed on 10/10/2022. Polyp of n jenny cavity and/or nasal sinus 859851574 J33.9 07/24/2022 -DIANA SCORE 0 Deviated nasal septum 12 9312368 J34.2 septoplast y and image guided bilateral total ethmoidect daphne, bilateral frontal sinusplast y with tissue removal, and bilateral maxillary antrostomy with tissue removal performed on 10/10/2022. Adhesions of nasal cavity 410051681 J34.89 - between septum and turbinate on right side- resolved [id number] SVITLANA EGAN MD [facility] [address] [facility] [place] [address] 06/16/2023 09:56:35 06/16/2023 10:58:46 Chronic sinusitis 36655757 J32.9 Left septal deviation with bilateral frontal, bilateral ethmoid, and bilateral maxillary) septoplast y and image guided bilateral total ethmoidect daphne, bilateral frontal sinusplast y with tissue removal, and bilateral maxillary antrostomy with tissue removal performed on 10/10/2022. Polyp of n jenny cavity and/or nasal sinus 668771501 J33.9 07/24/2022 -DIANA SCORE 06/15/22- METZER SCORE OF 0 BILATERALL Y [id number] SVITLANA EGAN MD [facility] [address] [place] [address] 12/15/2023 10:01:10 12/15/2023 11:20:09 Chronic sinusitis 45714792 J32.9 Left septal deviation with bilateral frontal, bilateral ethmoid, and bilateral maxillary) septoplast y and image guided bilateral total ethmoidect daphne, bilateral frontal sinusplast y with tissue removal, and bilateral maxillary antrostomy with tissue removal performed on 10/10/2022. 12/15/23 - nasal endoscopy, diana = 0 bilaterall y Polyp of n jenny cavity and/or nasal sinus 136652583 J33.9 07/24/2022 -DIANA SCORE 06/15/22- METZER SCORE OF 0 BILATERALL Y1- DIANA SCORE of 0 BILATERALL Y Health Concerns Section Related Observation LastModified by Organization Detai ls LastModified Time None Recorded Concern Status LastModified by Organization Details LastModified Time None Recorded Advance Directives Directive None Recorded Payers Insurance Date Sequence Insurance Name Policy Number Policy Pacheco Covered Member ID Pacheco Member ID Guarantor Name 12/21/2023 1 [place] [id number] 1 Linda Lawrence [id number] Linda Lawrence Notes Date Note Type Note Provider Name and Address Organization Details Recorded Time 10/13/2022 text/html Linda is a 57 ye ar old female who visits us in office today to follow up s/p septoplasty and image guided bilateral total ethmoidectomy, bilateral frontal sinusplasty with tissue removal, and bilateral maxillary antrostomy with tissue removal performed on 10/10/2022. The pt can finally breathe through her nose s/p. S/p swelling is occurring as expected. SVITLANA EGAN MD [address] [place] [address], [phone], [facility] 10/13/2022 12:05:40 11/05/2022 text/html Linda returns to day in follow up of s/p Septoplasty, image guided functional endoscopic sinus surgery with nasal endoscopy and bilateral complete ethmoidectomy, bilateral maxillary antrostomies and removal of antral mucosal disease, and bilateral image-guided frontal sinusotomies performed on 10/10/22. Surgical pathology showed Chronic polypoid sinusitis with mixed inflammation (lymphocytes, plasma cells and eosinophils) and fragments of bone. She is having normal post-operative symptoms and says she has felt good since her surgery. She continues to use saline several times per day. SVITLANA EGAN MD [facility] [place], [address], [facility] 11/05/2022 15:49:42 12/17/2022 text/html Linda returns to day in follow up of s/p Septoplasty, image guided functional endoscopic sinus surgery with nasal endoscopy and bilateral complete ethmoidectomy, bilateral maxillary antrostomies and removal of antral mucosal disease, and bilateral image-guided frontal sinusotomies performed on 10/10/22. Surgical pathology showed Chronic polypoid sinusitis with mixed inflammation (lymphocytes, plasma cells and eosinophils) and fragments of bone. She was prescribed compounding Gentamycin, Mupirocin and Budesonide saline irrigations her prior visit in October 2022. Dupixent treatment of her nasal polyp disease may be recommended to treat her nasal polyp disease in the future. She continues to breathe well through both sides of her nose, and she reports her sinus headaches have improved significantly since her procedure. SVITLANA EGAN MD [facility] [place], [address], [facility] 12/17/2022 08:53:41 06/16/2023 text/html Linda returns to day in follow up of s/p Septoplasty, image guided functional endoscopic sinus surgery with nasal endoscopy and bilateral complete ethmoidectomy, bilateral maxillary antrostomies and removal of antral mucosal disease, and bilateral image-guided frontal sinusotomies performed on 10/10/22. Surgical pathology showed Chronic polypoid sinusitis with mixed inflammation (lymphocytes, plasma cells and eosinophils) and fragments of bone. She was prescribed compounding Budesonide saline irrigations her prior visit in November 2022 which she has been very pleased with. SVITLANA EGAN MD [facility] [address] [place], [address], [facility] 06/16/2023 10:46:19 12/15/2023 text/html Linda is here to day to follow up on her chronic sinusitis. Linda takes Xyzal daily and uses the budesonide rinse once daily - sometimes twice if she is feeling stuffy. The rinse has been working great and she is breathing well with a normal sense of smell. SVITLANA EGAN MD [facility] [place], [address], [facility] 12/15/2023 10:24:22 OBGyn Episode No OBEpisode recorded.
[2024-08-03 16:38] LABS: Basophils # 0.1 K/mm3 (0-0.2); Basophils % 0.6 % (0.1-2.0); Eosinophils # 0.2 Kmm3 (0.0-0.4); Eosinophils % 1.5 % (0.1-12.0); Hematocrit 42.1 % (37.0-47.0); Hemoglobin 13.8 g/dL (12.2-16.2); Immature Granulocytes % 0.9 %; Lymphocytes % 27.6 % (10-50); Mean Corpuscular HGB Conc 32.8 g/dL (31.8-35.4); Mean Corpuscular Hemoglobin 30.9 pg (27.0-31.2); Mean Corpuscular Volume 94.2 fl (81-99); Mean Platelet Volume 9.8 fl (7.4-10.4); Monocytes # 0.7 K/mm3 (0.1-1.0); Monocytes % 6.7 % (1.7-9.3); Neutrophils # 6.8 K/mm3 (1.8-7.8); Neutrophils % 62.7 % (37.0-80.0); Nucleated Red Blood Cells # 0 10^3/uL; Nucleated Red Blood Cells % 0 %; Platelet Count 355 K/mm3 (142-424); Red Blood Count 4.47 M/mm3 (4.20-5.40); Red Cell Distribution Width 12.7 % (11.5-17.5); Red Cell Distribution Width-SD 43.7 fL; White Blood Count 10.8 K/mm3 (4.8-10.8)
[2024-08-03 17:18] LABS: Alanine Aminotransferase 41 U/L (12-78); Albumin Level 4.3 g/dl (3.5-5.0); Alkaline Phosphatase 67 U/L (38-126); Anion Gap 13.6 mEq/L (5-15); Aspartate Amino Transferase 39 U/L (14-36); Bilirubin,Direct 0.2 mg/dl (0.0-0.4); Bilirubin,Indirect 0.3 mg/dL (0.0-0.9); Bilirubin,Total 0.5 mg/dl (0.2-1.3); Bilirubin,Unconjugated 0.2 mg/dL (0.0-1.1); Blood Urea Nitrogen 18 mg/dl (7-17); Calcium 9.8 mg/dl (8.4-10.2); Carbon Dioxide 25 mmol/L (22.0-30.0); Chloride 102 mmol/L (98-107); Chol/HDL Ratio 3.5 (1-3.5); Cholesterol 174 mg/dl (140-200); Estimated Glomerular Filt Rate 64 ml/min (>60); GFR (African American) 78 ML/MIN (>60); Glucose 99 mg/dl (74-100); HDL Cholesterol 50 mg/dl (40-60); Magnesium 1.5 mg/dl (1.6-2.3); Potassium 4.6 mmoL/L (3.5-5.1); Sodium 136 mmol/L (136-145); Total Protein,Serum 7.2 g/dl (6.3-8.2); Triglycerides 88 mg/dl (30-150); VLDL Cholesterol 18 mg/dL (0-40)
[2024-08-03 17:28] LABS: Direct LDL Cholesterol 104.28 mg/dL (100-129)
[2024-08-03 17:34] LABS: Free T4 (Free Thyroxine) 1.52 ng/dl (0.78-2.19)
[2024-08-03 17:48] LABS: Thyroid Stimulating Hormone 2.13 uIU/mL (0.465-4.68)
== END 2024-08-03 23:59 | disposition home or self-care (01) ==
LOC: LAB 15:57
PROVIDERS: PCP Nurse Practitioner Family; Visit Provider Internal Medicine
DX: R06.02 Shortness of breath (principal); R53.83 Other fatigue; I10 Essential (primary) hypertension
CPT/HCPCS: 36415; 80048; 80061; 80076; 83735; 84439; 84443; 85025

== ENCOUNTER 2025-02-21 13:31 | Outpatient (CLI) | payer BC, SELFPAY ==
--- OUTSIDE RECORDS SUMMARY | 2024-06-04 16:30 | XMS_ITS ---
Author Organization [facility] Address [address] [address] [place] [address] Care Team Providers Care Field Installer Name Role Phone Terry Armas Primary Care Provider Terry Mcmullen Unavailable [phone] Migration, Provider Unavailable Unavailable Allergies Allergen (clinical drug ingredient) Drug/Non Drug Allergy documented on EMR Reaction Allergy Type Onset Date Status Penicillin rash Drug Allergy Active REASON FOR VISIT [facility] Encounter Medications Medication SIG (Take, Route, Frequency, Duration) Notes Start Date End Date Status Levocetirizine Dihydrochloride 5 MG 1 tab(s) orally once a day (in the evening); Duration: 30 day(s) 06/25/2021 Active Flonase Allergy Relief 50 MCG/ACT 1 spray(s) in each nostril once a day; Duration: 30 day(s) Active ZyrTEC Allergy 10 MG 1 tab(s) orally once a day Active Tylenol Extra Strength 500 MG 2 tab(s) orally every 6 hours prn Active Benadryl Allergy 25 MG 1 cap(s) orally 3 times a day prn Active Bisoprolol Fumarate 10 MG 1 tab(s) orally twice daily Active Losartan Potassium-HCTZ 100-25 MG 1 tab(s) orally once a day; Duration: 30 day(s) Active Vitamin D3 50 MCG 1 CAP(S) ORALLY ONCE A WEEK *Please review and pick correct strength-formulati on from Medispan options. If intended option is not shown, discontinue and re-order from Quick Search* Active cloNIDine HCl 0.1 MG 1 tab(s) orally 3 times a day Active valACYclovir HCl 1 GM 1 tab(s) orally once a day; Duration: 5 days Active Allopurinol 100 MG 1 tab(s) orally 2 times a day; Duration: 30 day(s) Active Wellbutrin XL 150 MG 1 tab(s) orally every 24 hours; Duration: 30 day(s) Active Encounters Encounter Location Date Provider Diagnosis [facility] [address] [place] [address] 06/04/2024 Provider Migration Plan Of Treatment Medication Medication Name Sig Start Date Stop Date Notes valACYclovir HCl 1 GM 1 tab(s) orally on ce a day; Duration: 5 days Progress Notes * Yuliana BETANCOURTDOB:1965 (59 yo F)Acc No.[id number]:06/04/2024 Patient: Osbaldo RODRIGUEZda Provider: Jose rodriguez Migration :1965 A ge:58 Y S ex:Female Date:06/04/2024 Address:[address] [place] [address] [id number] Pcp:Terry Armas Subjective: * Chief Complaints: * [facility] * Medical History: * Medications: T aking Wellbutrin XL 150 MG Tablet Extended Release 24 Hour 1 tab(s) orally every 24 hours , Taking Allopurinol 100 MG Tablet 1 tab(s) orally 2 times a day , Taking Vitamin D3 50 MCG TABLET 1 CAP(S) ORALLY ONCE A WEEK , Notes to Pharmacist: *Please review and pick correct strength-formulation [facility]. If intended option is not shown, discontinue and re-order from Quick Search*, Taking cloNIDine HCl 0.1 MG Tablet 1 tab(s) orally 3 times a day , Taking Bisoprolol Fumarate 10 MG Tablet 1 tab(s) orally twice daily , Taking Losartan Potassium-HCTZ 100-25 MG Tablet 1 tab(s) orally once a day , Taking Tylenol Extra Strength 500 MG Tablet 2 tab(s) orally every 6 hours , Notes to Pharmacist: prn, Taking Benadryl Allergy 25 MG Capsule 1 cap(s) orally 3 times a day , Notes to Pharmacist: prn, Taking Flonase Allergy Relief 50 MCG/ACT Suspension 1 spray(s) in each nostril once a day , Taking ZyrTEC Allergy 10 MG Tablet 1 tab(s) orally once a day , Taking Levocetirizine Dihydrochloride 5 MG Tablet 1 tab(s) orally once a day (in the evening) * Allergies: P enicillin: rash - Allergy. Objective: * Vitals: Assessment: Plan: * Treatment: * * Electronic signature of Prov ider Migration on 02/21/2025 at 01:35 PM EST Sign off status: Pending * Provider: Jose rodriguez Migration Date: 0 06/04/2024 Generated for Lori morales/Zuleyka/Andrez on: 1 04/24/2024 01:35 PM EST
--- OUTSIDE RECORDS SUMMARY | 2025-02-21 13:36 | XMS_ITS | Clinical Summary ---
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
--- OUTSIDE RECORDS SUMMARY | 2025-02-21 13:36 | XMS_ITS | Clinical Summary ---
Author Organization Healthcare Address [address] [id number] Care Team Providers Care Non Ferrous Material Handler Name Role Phone Yaakov Claros MD Primary Care Provider [phone] Family History Medical History Relation Name Comments Hypertension Brother Cardiac disorder Father Diabetes Father Hypertension Father Cardiac disorder Mother Depression Mother Hypertension Mother Alcohol abuse Other 1 Cardiac disorder Other 2 Hypertension Other 3 Relation Name Status Comments Brother Father Mother Other 1 Other 2 Other 3 Social History Tobacco Use Types Packs/Day Years Used Date Smoking Tobacco: Every Day Alcohol Use Standard Drinks/Week Comments Yes 0 (1 standard drink = 0.6 oz pur e alcohol) Comments Unknown Sex and Gender Information Value Date Recorded Sex Assigned at Not on file Legal Sex Female 7:57 PM EDT Gender Identity Not on file Sexual Orientation Not on file Last Filed Vital Signs Vital Sign Reading Time Taken Comments Blood Pressure - - Pulse - - Temperature - - Respiratory Rate - - Oxygen Saturation - - Inhaled Oxygen Concentration - - Weight 93 kg (205 lb 0.1 oz) 06/12/2014 9:58 AM EDT Height 167.6 cm (5' 6 ) 06/12/2014 9:58 AM EDT Body Mass Index 33.09 06/12/2014 9:58 AM EDT Plan of Treatment Not on file Care Teams Non Ferrous Material Handler Relationship Specialty [place] [id number] PCP - General 07/13/20
--- OUTSIDE RECORDS SUMMARY | 2025-02-21 13:36 | XMS_ITS | Patient Health Record ---
Author Organization [facility] Address [address] [facility] [address] [place] [address] Care Team Providers Care Sr Account Executive Name Role Phone Terry Armas Primary Care Provider [phone] Terry Mcmullen Unavailable [phone] Migration, Provider Unavailable Unavailable Allergies Allergen (clinical drug ingredient) Drug/Non Drug Allergy documented on EMR Reaction Allergy Type Onset Date Status Penicillin rash Drug Allergy Active Reason For Referral No Information Medications Medication SIG (Take, Route, Frequency, Duration) Notes Start Date End Date Status Allopurinol 100 MG 1 tab(s) orally 2 times a day; Duration: 30 day(s) Active Levocetirizine Dihydrochloride 5 MG 1 tab(s) orally once a day (in the evening); Duration: 30 day(s) 06/25/2021 Active Wellbutrin XL 150 MG 1 tab(s) orally every 24 hours; Duration: 30 day(s) Active Bisoprolol Fumarate 10 MG 1 tab(s) [...] tab(s) orally 3 times a day Active Flonase Allergy Relief 50 MCG/ACT 1 spray(s) in each nostril once a day; Duration: 30 day(s) Active ZyrTEC Allergy 10 MG 1 tab(s) orally once a day Active Tylenol Extra Strength 500 MG 2 tab(s) orally every 6 hours prn Active valACYclovir HCl 1 GM 1 tab(s) orally once a day; Duration: 5 days Active Benadryl Allergy 25 MG 1 cap(s) orally 3 times a day prn Active Social History Tobacco Use: Social History Observation Description Date Details (start date - stop date) Current Smoker NA - NA Smoking: Question Answer Notes Are you a: current smoker How often do you smoke cigarettes? every day How many cigarettes a day do you smoke? 11-20 Problems Problem Type SNOMED Code ICD Code Onset Dates Problem Status W/U Status Risk Notes Problem Essential hypertension (13727958) Essential hypertension (I10) Active confirmed Problem Seasonal allergy (732060626) Seasonal allergies (J30.2) Active confirmed Problem Tobacco use (809797508) Tobacco use disorder (F17.200) Active confirmed Problem Ulcerative colitis (21126909) Ulcerative colitis without complications, unspecified location (K51.90) Active confirmed Encounters Encounter Location Date Provider Diagnosis [facility] [address] [place] [address] 06/04/2024 Provider Migration Plan Of Treatment Pending Test Test Name Order Date CT Scan : Chest, Lung Cancer Screening 0 07/12/2021 Insurance Providers Payer Name Payer Address Payer Phone Subscriber Number Group Number Insured Name Patient Relationship to Insured Coverage Start Date Coverage End Date [facility] [address] [place] [address] [id number] Yuliana Lawrence Self - patient is the insured Medical (General) History Medical History History ICD Code HTN Gout Ulcerative Colitis Allergies Surgical History Surgery Date(Month/Year) Cholecystectomy 2013 Tonsillectomy 1985 D & C 1991 Ensure implant in fallopian tubes SLT for eyes Hospitalization History Reason Date(Month/Year) Tonsillectomy
--- OUTSIDE RECORDS SUMMARY | 2025-02-21 13:36 | XMS_ITS | Referral Summary ---
Author Organization [employer] ([place], [place], [place], [place], [place]) Address [address] [place] [address] Care Team Providers Care Resource Efficiency Manager Name Role Phone Unavailable Primary Care Provider [...]
[2025-02-21 13:48] LABS: Hematocrit 40.2 % (37.0-47.0); Hemoglobin 13.9 g/dL (12.2-16.2); Immature Granulocytes % 1.1 %; Mean Corpuscular HGB Conc 34.6 g/dL (31.8-35.4); Mean Corpuscular Hemoglobin 32.6 pg (27.0-31.2); Mean Corpuscular Volume 94.4 fl (81-99); Nucleated Red Blood Cells % 0 %; Platelet Count 352 K/mm3 (142-424); Red Blood Count 4.26 M/mm3 (4.20-5.40); Red Cell Distribution Width-SD 43.3 fL; White Blood Count 10.5 K/mm3 (4.8-10.8)
[2025-02-21 14:13] LABS: Alanine Aminotransferase 42 U/L (12-78); Albumin Level 4.6 g/dl (3.5-5.0); Alkaline Phosphatase 78 U/L (38-126); Anion Gap 13.2 mEq/L (5-15); Aspartate Amino Transferase 40 U/L (14-36); Bilirubin,Direct 0.3 mg/dl (0.0-0.4); Bilirubin,Indirect 0.4 mg/dL (0.0-0.9); Bilirubin,Total 0.7 mg/dl (0.2-1.3); Bilirubin,Unconjugated 0.4 mg/dL (0.0-1.1); Blood Urea Nitrogen 17 mg/dl (7-17); Calcium 9.9 mg/dl (8.4-10.2); Carbon Dioxide 24 mmol/L (22.0-30.0); Chloride 98 mmol/L (98-107); Cholesterol 176 mg/dl (140-200); Creatinine,Serum 1.00 mg/dl (0.52-1.04); Estimated Glomerular Filt Rate 57 ml/min (>60); GFR (African American) 69 ML/MIN (>60); Glucose 118 mg/dl (74-100); HDL Cholesterol 70 mg/dl (40-60); Magnesium 1.4 mg/dl (1.6-2.3); Potassium 4.2 mmoL/L (3.5-5.1); Sodium 131 mmol/L (136-145); Total Protein,Serum 7.3 g/dl (6.3-8.2); Triglycerides 103 mg/dl (30-150)
[2025-02-21 14:27] LABS: Hemoglobin A1C 5.7 % (4.0-6.0)
[2025-02-21 14:30] LABS: Free T4 (Free Thyroxine) 1.51 ng/dl (0.78-2.19)
[2025-02-21 14:43] LABS: Thyroid Stimulating Hormone 1.84 uIU/mL (0.465-4.68)
== END 2025-02-21 23:59 | disposition home or self-care (01) ==
LOC: LAB 13:32
PROVIDERS: PCP Nurse Practitioner Family; Visit Provider Internal Medicine
DX: R73.09 Other abnormal glucose (principal); I10 Essential (primary) hypertension; Z13.1 Encounter for screening for diabetes mellitus
CPT/HCPCS: 36415; 80048; 80061; 80076; 83036; 83735; 84439; 84443; 85025